=== PATIENT | male | born 1955 | race Hispanic/Latino ===

== ENCOUNTER 2020-08-09 10:14 | Inpatient (IN) | payer OTHER, MEDICARE ==
[~2020-08-09] VITALS: Ht 167.6 cm; Wt 90.7 kg
[2020-08-09] MEDS ORDERED: SODIUM CHLORIDE 0.9% 1000ML 1,000 ML IV SCH (10:30)
[2020-08-09] MEDS ORDERED: DILTIAZEM HCL 5 MG/ML 5 ML VIAL IV ONE (10:30)
[2020-08-09] MEDS ORDERED: DILTIAZEM HCL VIAL 5 ML ONE (10:36)
[2020-08-09] MEDS ORDERED: SODIUM CHLORIDE 0.9% 1000ML 1,000 ML ONE (10:36)
[2020-08-09] MEDS ORDERED: AMLODIPINE BESYL5 MG PO (10:44)
[2020-08-09] MEDS ORDERED: LIPITOR20 MG PO (10:44)
[2020-08-09] MEDS ORDERED: NITROGLYCERIN0.4 MG SL (10:44)
[2020-08-09] MEDS ORDERED: FOLIC ACID-VIT1 EACH PO (10:44)
[2020-08-09] MEDS ORDERED: LEVOTHYROXINE50 MCG PO (10:44)
[2020-08-09] MEDS ORDERED: GABAPENTIN400 MG PO (10:44)
[2020-08-09] MEDS ORDERED: LEVEMIR FL100 UNIT/1 SC (10:44)
[2020-08-09] MEDS ORDERED: DEPAKOTE ER500 MG PO (10:44)
[2020-08-09] MEDS ORDERED: JANUVIA50 MG PO (10:44)
[2020-08-09] MEDS ORDERED: NEURONTIN400 MG PO (10:44)
[2020-08-09] MEDS ORDERED: PROVENTIL HFA6.7 GM INH (10:44)
[2020-08-09] MEDS ORDERED: AMIODARONE HCL 150MG 100 ML IV STA (10:55)
[2020-08-09] MEDS ORDERED: INSULIN REGULAR, HUMAN 100 UNIT/1 ML 3ML VIAL IV ONE (11:00)
[2020-08-09 11:05] LABS: BASOPHILS % 0.2 % (0.0-1.0); HEMATOCRIT 39.9 % (38.2-49.6); HEMOGLOBIN 13.4 g/dL (14.0-18.0); LYMPHOCYTES # (AUTO) 0.6 (1.0-3.2); LYMPHOCYTES % 7.6 % (18.0-39.1); MEAN CORPUSCULAR HEMOGLOBIN 30.9 pg (28-32); MEAN CORPUSCULAR HGB CONC 33.6 g/dL (31-35); MEAN CORPUSCULAR VOLUME 91.9 fL (81-99); MONOCYTES # (AUTO) 0.3 (0.2-0.8); NEUTROPHILS # (AUTO) 7.3 (2.1-6.9); NEUTROPHILS % 87.6 % (38.7-80.0); PLATELET COUNT 189 x10e3/uL (140-360); RED BLOOD COUNT 4.34 x10e6/uL (4.3-5.7); RED CELL DISTRIBUTION WIDTH 12.7 % (11.7-14.4)
[2020-08-09 11:13] LABS: CLARITY,URINE CLEAR (CLEAR); COLOR,URINE YELLOW (YELLOW); KETONES,URINE 1+ (NEGATIVE); LEUKOCYTE ESTERASE ,URINE LARGE (NEGATIVE); NITRITE,URINE NEGATIVE (NEGATIVE); PROTEIN,URINE DIPSTICK >=300 (NEGATIVE); URINE UROBILINOGEN 0.2 mg/dL (0.2 - 1)
[2020-08-09 11:16] LABS: BACTERIA,URINE FEW /HPF
[2020-08-09 11:17] LABS: AMORPHOUS SEDIMENT,URINE MODERATE (FEW)
[2020-08-09] MEDS: CEFEPIME HCL 1GM 1 GM in SODIUM CHLORIDE 0.9% 50ML 50 ML IV SCH ×2 (11:20→11:43)
[2020-08-09 11:23] LABS: ALBUMIN 2.9 g/dL (3.5-5.0); ALBUMIN/GLOBULIN RATIO 0.5 (0.8-2.0); ANION GAP 24.6 mmol/L (8-16); CALCIUM 9.2 mg/dL (8.4-10.2); CREATININE, SERUM 2.63 mg/dL (0.72-1.25); POTASSIUM 4.6 mmol/L (3.5-5.1)
[2020-08-09] MEDS ORDERED: METOPROLOL TARTRATE INJ 1 MG/ML VIAL IV ONE (11:45)
[2020-08-09] MEDS ORDERED: METOPROLOL TARTRATE INJ 1 MG/ML VIAL ONE (11:54)
[2020-08-09 13:17] LABS: FREE THYROXINE INDEX 1.7258 (1.4-3.8); THYROID STIMULATING HORMONE 0.579 uIU/mL (0.350-4.940)
[2020-08-09] MEDS ORDERED: DEXAMETHASONE SOD PHOS 10 MG/1 ML VIAL IV ONE (14:45)
[2020-08-09 20:00] VITALS: BP 131/78
[2020-08-09 20:05] VITALS: BP 131/78
[2020-08-09] MEDS ORDERED: DEXTROSE 50% SYRINGE 50 ML IV PRN ×2 (20:45→22:15)
[2020-08-09] MEDS ORDERED: INSULIN LISPRO 100 UNIT/1 ML 3ML VIAL SQ SCH (21:00)
[2020-08-09] MEDS ORDERED: METOPROLOL TARTRATE 50 MG TAB PO ONE (21:15)
[2020-08-09 21:52] LABS: ABG HCO3 14 mmol/L (22-26); ABG PCO2 24 mmHg (35-45); ABG PH 7.36 (7.35-7.45); ABG PO2 71 mmHg (80-105); ABG TCO2 15
[2020-08-09 22:00] VITALS: BP 138/80
[2020-08-09] MEDS ORDERED: CEFEPIME HCL 1GM 1 GM in SODIUM CHLORIDE 0.9% 50ML 50 ML IV SCH (22:00)
[2020-08-09] MEDS ORDERED: DEXAMETHASONE SOD PHOS INJ 4 MG/ML VIAL IV ONE (22:00)
[2020-08-09] MEDS ORDERED: HYDRALAZINE HCL 20 MG/ML VIAL IV PRN (22:15)
[2020-08-09] MEDS ORDERED: INSULIN REGULAR, HUMAN 3ML VL 100 UNIT in SODIUM CHLORIDE 0.9% 100 ML IV SCH ×2 (22:15)
[2020-08-09] MEDS: SODIUM CHLORIDE 0.9% 1000ML 1,000 ML IV SCH (22:22)
[2020-08-09] MEDS ORDERED: POTASSIUM CHLORIDE 20MEQ/100ML 100 ML IV PRN (22:30)
[2020-08-09] MEDS ORDERED: MAGNESIUM SULF 1GRAM/DEXTROSE 100 ML IV PRN (22:30)
[2020-08-09] MEDS ORDERED: POTASSIUM CHLORIDE 20MEQ/100ML 200 ML IV PRN (22:30)
[2020-08-09] MEDS ORDERED: ENOXAPARIN 30 MG/0.3 ML SYR SC STA (22:51)
[2020-08-09] MEDS ORDERED: CEFTRIAXONE SOD 1 GM/50 ML BAG IV SCH (23:00)
[2020-08-09] MEDS ORDERED: AZITHROMYCIN 500MG/NS 250 ML 250 ML IV SCH (23:00)
[2020-08-10] VITALS (11 sets, daily range): BP systolic 91–138; BP diastolic 52–85
[2020-08-10] MEDS ORDERED: CEFTRIAXONE SOD 1 GM in SODIUM CHLORIDE 0.9% 50ML 50 ML IV SCH ×2
[2020-08-10 00:41] LABS: INR 0.99; PARTIAL THROMBOPLASTIN TIME 30.9 seconds (23.8-35.5); PROTHROMBIN TIME 13.7 seconds (11.9-14.5)
[2020-08-10 00:52] LABS: ANION GAP 23.9 mmol/L (8-16); CALCIUM 8.2 mg/dL (8.4-10.2); CREATININE, SERUM 2.41 mg/dL (0.72-1.25); MAGNESIUM 2.7 MG/DL (1.3-2.1); POTASSIUM 3.9 mmol/L (3.5-5.1)
[2020-08-10 04:57] LABS: BASOPHILS % 0.3 % (0.0-1.0); HEMATOCRIT 38.1 % (38.2-49.6); HEMOGLOBIN 12.9 g/dL (14.0-18.0); LYMPHOCYTES # (AUTO) 0.9 (1.0-3.2); LYMPHOCYTES % 7.9 % (18.0-39.1); MEAN CORPUSCULAR HEMOGLOBIN 30.5 pg (28-32); MEAN CORPUSCULAR HGB CONC 33.9 g/dL (31-35); MEAN CORPUSCULAR VOLUME 90.1 fL (81-99); MONOCYTES # (AUTO) 0.7 (0.2-0.8); MONOCYTES % 6.2 % (4.4-11.3); NEUTROPHILS # (AUTO) 9.4 (2.1-6.9); NEUTROPHILS % 85.1 % (38.7-80.0); PLATELET COUNT 174 x10e3/uL (140-360); RED BLOOD COUNT 4.23 x10e6/uL (4.3-5.7); RED CELL DISTRIBUTION WIDTH 12.9 % (11.7-14.4)
[2020-08-10 05:27] LABS: ALBUMIN 2.3 g/dL (3.5-5.0); ALBUMIN/GLOBULIN RATIO 0.5 (0.8-2.0); ANION GAP 18.4 mmol/L (8-16); CALCIUM 8.3 mg/dL (8.4-10.2); CREATININE, SERUM 2.3 mg/dL (0.72-1.25); POTASSIUM 3.4 mmol/L (3.5-5.1)
[2020-08-10 05:49] LABS: FERRITIN 548.43 ng/mL (21.81-274.66)
[2020-08-10] MEDS: SODIUM CHLORIDE 0.9% 1000ML 1,000 ML IV SCH ×4 (07:30→22:16)
[2020-08-10] MEDS: LEVOTHYROXINE SODIUM 50 MCG TAB PO SCH ×2 (07:30→09:10)
[2020-08-10] MEDS: DEPAKOTE DELAYED-RELEASE TAB 500 MG PO SCH ×3 (08:33→15:10)
[2020-08-10] MEDS: METOPROLOL TARTRATE 50 MG TAB PO SCH ×3 (08:33→21:28)
[2020-08-10] MEDS: CHOLECALCIFEROL 400 UNIT TAB PO SCH ×2 (08:34→09:07)
[2020-08-10] MEDS: GABAPENTIN 100 MG CAP PO SCH ×4 (08:34→21:28)
[2020-08-10] MEDS: ASCORBIC ACID 500 MG TAB PO SCH ×3 (08:34→17:00)
[2020-08-10] MEDS: ZINC SULFATE 220 MG CAP PO SCH ×2 (08:34→09:07)
[2020-08-10] MEDS: DEXAMETHASONE SOD PHOS INJ 4 MG/ML VIAL IV SCH (08:51)
[2020-08-10] MEDS: FAMOTIDINE 20 MG/2 ML VIAL IV SCH (08:51)
[2020-08-10] MEDS ORDERED: ENOXAPARIN 30 MG/0.3 ML SYR SC SCH ×2 (09:00)
[2020-08-10] MEDS ORDERED: GABAPENTIN 400 MG CAP PO SCH (09:00)
[2020-08-10 09:03] LABS: ANION GAP 15.3 mmol/L (8-16); CREATININE, SERUM 2.22 mg/dL (0.72-1.25); MAGNESIUM 2.6 MG/DL (1.3-2.1); POTASSIUM 3.3 mmol/L (3.5-5.1)
[2020-08-10] MEDS: ENOXAPARIN SODIUM INJ 100 MG/ML SYR SC SCH ×2 (09:06→21:28)
[2020-08-10 09:51] LABS: BAND NEUTROPHILS % (MANUAL) 7 %; LYMPHOCYTES % (MANUAL) 3 % (19-48); MONOCYTES % (MANUAL) 3 % (3.4-9.0); NEUTROPHILS % (MANUAL) 86 % (40-74)
[2020-08-10 09:54] LABS: PLATELET ESTIMATE ADEQUATE; PLATELET MORPHOLOGY COMMENT NORMAL; RBC MORPHOLOGY COMMENT NORMAL
[2020-08-10 12:48] LABS: ANION GAP 14.5 mmol/L (8-16); CALCIUM 7.5 mg/dL (8.4-10.2); CREATININE, SERUM 2.18 mg/dL (0.72-1.25); MAGNESIUM 2.6 MG/DL (1.3-2.1); POTASSIUM 3.5 mmol/L (3.5-5.1)
[2020-08-10] MEDS ORDERED: INSULIN REGULAR, HUMAN 3ML VL 100 UNIT in SODIUM CHLORIDE 0.9% 100 ML IV SCH ×2 (14:15)
[2020-08-10] MEDS ORDERED: DEXTROSE 50% SYRINGE 50 ML IV PRN (14:15)
[2020-08-10] MEDS: PIPERACILLIN/TAZOBACTAM 2.25 GM in SODIUM CHLORIDE 0.9% 50ML 50 ML IV SCH ×2 (14:37→21:28)
[2020-08-10 14:49] LABS: FREE T4 (FREE THYROXINE) 0.81 ng/dL (0.8-1.8); THYROID STIMULATING HORMONE 0.247 uIU/mL (0.350-4.940)
[2020-08-10 16:32] LABS: CALCIUM 7.2 mg/dL (8.4-10.2); CREATININE, SERUM 2.02 mg/dL (0.72-1.25); MAGNESIUM 2.5 MG/DL (1.3-2.1)
[2020-08-10] MEDS ORDERED: AMIODARONE HCL 150 MG/100 ML BAG IV PRN (17:45)
[2020-08-10] MEDS ORDERED: AMIODARONE 900MG 500 ML IV PRN (17:45)
[2020-08-10] MEDS ORDERED: VALPROATE SOD INJ 1,000 MG in SODIUM CHLORIDE 0.9% 100 ML 100 ML IV ONE (18:00)
[2020-08-10] MEDS ORDERED: AMIODARONE HCL 100 ML IV PRN (18:00)
[2020-08-10] MEDS: METOPROLOL TARTRATE INJ 1 MG/ML VIAL IV PRN (18:14)
[2020-08-10 18:19] LABS: APPEARANCE,CSF CLEAR (CLEAR); COLOR,CSF COLORLESS (COLORLESS); TUBE NUMBER 3
[2020-08-10 18:20] LABS: WHITE BLOOD CELL,CSF 3 cells/uL (0-5)
[2020-08-10 21:03] LABS: ANION GAP 15.9 mmol/L (8-16); CALCIUM 7.2 mg/dL (8.4-10.2); CREATININE, SERUM 2.03 mg/dL (0.72-1.25); MAGNESIUM 2.5 MG/DL (1.3-2.1); POTASSIUM 3.9 mmol/L (3.5-5.1)
[2020-08-10] MEDS: DIVALPROEX SODIUM 250 MG TAB...DR PO SCH (21:27)
[2020-08-10] MEDS: ATORVASTATIN 20 MG TAB PO SCH (21:27)
[2020-08-10] MEDS ORDERED: SODIUM CHLORIDE 0.9% 500ML 500 ML IV ONE (23:15)
[2020-08-11] VITALS (8 sets, daily range): BP systolic 92–122; BP diastolic 54–83
[2020-08-11] MEDS ORDERED: SODIUM CHLORIDE 0.9% 500ML 500 ML IV SCH (01:30)
[2020-08-11] MEDS ORDERED: SODIUM CHLORIDE 0.9% 250ML 250 ML IV ONE (02:00)
[2020-08-11 02:31] LABS: ABG PCO2 31 mmHg (35-45); ABG PH 7.37 (7.35-7.45); ABG PO2 113 mmHg (80-105)
[2020-08-11 02:32] LABS: ABG HCO3 18 mmol/L (22-26); ABG TCO2 19
[2020-08-11] MEDS ORDERED: MIDODRINE 2.5 MG TAB PO PRN (02:45)
[2020-08-11] MEDS: PIPERACILLIN/TAZOBACTAM 2.25 GM in SODIUM CHLORIDE 0.9% 50ML 50 ML IV SCH ×2 (05:31→14:09)
[2020-08-11 05:50] LABS: BASOPHILS % 0.1 % (0.0-1.0); HEMATOCRIT 32.6 % (38.2-49.6); HEMOGLOBIN 10.9 g/dL (14.0-18.0); LYMPHOCYTES % 12.1 % (18.0-39.1); MEAN CORPUSCULAR HEMOGLOBIN 30.9 pg (28-32); MEAN CORPUSCULAR HGB CONC 33.4 g/dL (31-35); MEAN CORPUSCULAR VOLUME 92.4 fL (81-99); MONOCYTES # (AUTO) 0.3 (0.2-0.8); MONOCYTES % 3.3 % (4.4-11.3); NEUTROPHILS # (AUTO) 6.8 (2.1-6.9); NEUTROPHILS % 83.9 % (38.7-80.0); PLATELET COUNT 148 x10e3/uL (140-360); RED BLOOD COUNT 3.53 x10e6/uL (4.3-5.7); RED CELL DISTRIBUTION WIDTH 13.2 % (11.7-14.4)
[2020-08-11 06:15] LABS: ALBUMIN 1.6 g/dL (3.5-5.0); ALBUMIN/GLOBULIN RATIO 0.4 (0.8-2.0); ANION GAP 14.7 mmol/L (8-16); CREATININE, SERUM 1.76 mg/dL (0.72-1.25); MAGNESIUM 2.4 MG/DL (1.3-2.1); PHOSPHORUS 3.1 MG/DL (2.3-4.7); POTASSIUM 3.7 mmol/L (3.5-5.1)
[2020-08-11] MEDS: METOPROLOL TARTRATE 25 MG TAB PO SCH ×2 (09:00→20:24)
[2020-08-11] MEDS: LEVOTHYROXINE SODIUM 50 MCG TAB PO SCH (10:06)
[2020-08-11] MEDS: DEXAMETHASONE SOD PHOS INJ 4 MG/ML VIAL IV SCH (10:06)
[2020-08-11] MEDS: ZINC SULFATE 220 MG CAP PO SCH (10:07)
[2020-08-11] MEDS: ASCORBIC ACID 500 MG TAB PO SCH ×2 (10:07→17:23)
[2020-08-11] MEDS: CHOLECALCIFEROL 400 UNIT TAB PO SCH (10:07)
[2020-08-11] MEDS: FAMOTIDINE 20 MG/2 ML VIAL IV SCH (10:07)
[2020-08-11] MEDS: ENOXAPARIN SODIUM INJ 100 MG/ML SYR SC SCH (10:07)
[2020-08-11] MEDS: DIVALPROEX SODIUM 250 MG TAB...DR PO SCH ×3 (10:07→20:24)
[2020-08-11] MEDS: GABAPENTIN 100 MG CAP PO SCH ×3 (10:07→20:24)
[2020-08-11] MEDS: SODIUM CHLORIDE 0.9% 1000ML 1,000 ML IV SCH ×2 (10:26→22:19)
[2020-08-11 13:11] LABS: ANION GAP 12.6 mmol/L (8-16); CREATININE, SERUM 1.55 mg/dL (0.72-1.25); MAGNESIUM 2.3 MG/DL (1.3-2.1); POTASSIUM 3.6 mmol/L (3.5-5.1)
[2020-08-11 13:14] LABS: CALCIUM 6.7 mg/dL (8.4-10.2)
[2020-08-11] MEDS ORDERED: SODIUM CHLORIDE 0.9% 500ML 500 ML ONE (18:05)
[2020-08-11] MEDS: ATORVASTATIN 20 MG TAB PO SCH (20:24)
[2020-08-11] MEDS ORDERED: INSULIN GLARGINE 100 UNITS/ML VIAL SQ SCH (21:00)
[2020-08-12] VITALS (11 sets, daily range): BP systolic 96–135; BP diastolic 51–78
[2020-08-12] MEDS: ACETAMINOPHEN 325 MG TAB PO PRN ×3 (03:20→20:49)
[2020-08-12] MEDS: SODIUM CHLORIDE 0.9% 1000ML 1,000 ML IV SCH ×2 (03:30→08:00)
[2020-08-12 05:39] LABS: HEMATOCRIT 29.6 % (38.2-49.6); HEMOGLOBIN 9.8 g/dL (14.0-18.0); LYMPHOCYTES # (AUTO) 0.5 (1.0-3.2); LYMPHOCYTES % 9.3 % (18.0-39.1); MEAN CORPUSCULAR HEMOGLOBIN 30.3 pg (28-32); MEAN CORPUSCULAR HGB CONC 33.1 g/dL (31-35); MEAN CORPUSCULAR VOLUME 91.6 fL (81-99); MONOCYTES # (AUTO) 0.2 (0.2-0.8); MONOCYTES % 3.1 % (4.4-11.3); NEUTROPHILS % 86.6 % (38.7-80.0); PLATELET COUNT 146 x10e3/uL (140-360); RED BLOOD COUNT 3.23 x10e6/uL (4.3-5.7); RED CELL DISTRIBUTION WIDTH 13.1 % (11.7-14.4)
[2020-08-12 06:05] LABS: ALBUMIN 1.6 g/dL (3.5-5.0); ALBUMIN/GLOBULIN RATIO 0.5 (0.8-2.0); ANION GAP 10.5 mmol/L (8-16); CREATININE, SERUM 1.52 mg/dL (0.72-1.25); POTASSIUM 3.5 mmol/L (3.5-5.1)
[2020-08-12 06:07] LABS: CALCIUM 6.7 mg/dL (8.4-10.2)
[2020-08-12] MEDS: LEVOTHYROXINE SODIUM 50 MCG TAB PO SCH (08:00)
[2020-08-12] MEDS: CHOLECALCIFEROL 400 UNIT TAB PO SCH (08:57)
[2020-08-12] MEDS: ZINC SULFATE 220 MG CAP PO SCH (08:57)
[2020-08-12] MEDS: METOPROLOL TARTRATE 25 MG TAB PO SCH ×2 (08:57→21:46)
[2020-08-12] MEDS: FAMOTIDINE 20 MG/2 ML VIAL IV SCH (08:57)
[2020-08-12] MEDS: GABAPENTIN 100 MG CAP PO SCH ×3 (08:57→20:49)
[2020-08-12] MEDS: DIVALPROEX SODIUM 250 MG TAB...DR PO SCH ×3 (08:57→20:49)
[2020-08-12] MEDS: ASCORBIC ACID 500 MG TAB PO SCH ×2 (08:57→16:29)
[2020-08-12] MEDS: CEPHALEXIN MONOHYDRATE 250 MG CAP PO SCH ×3 (11:58→23:55)
[2020-08-12] MEDS ORDERED: POTASSIUM CHLORIDE 20 MEQ TAB CR PO STA (15:05)
[2020-08-12] MEDS ORDERED: INSULIN LISPRO 100 UNIT/1 ML 3ML VIAL SQ SCH (15:45)
[2020-08-12] MEDS: INSULIN LISPRO 100 UNIT/1 ML 3ML VIAL SQ SCH (16:17)
[2020-08-12] MEDS: AMIODARONE HCL 200 MG TAB PO SCH (16:29)
[2020-08-12] MEDS: ATORVASTATIN 20 MG TAB PO SCH (20:49)
[2020-08-12] MEDS ORDERED: INSULIN GLARGINE 100 UNITS/ML VIAL SQ SCH (21:00)
[2020-08-13] VITALS (8 sets, daily range): BP systolic 95–140; BP diastolic 62–83
[2020-08-13] MEDS: METOPROLOL TARTRATE INJ 1 MG/ML VIAL IV PRN (05:04)
[2020-08-13] MEDS: SODIUM CHLORIDE 0.9% 1000ML 1,000 ML IV SCH ×2 (06:05→17:02)
[2020-08-13] MEDS: CEPHALEXIN MONOHYDRATE 250 MG CAP PO SCH ×3 (06:05→18:34)
[2020-08-13] MEDS ORDERED: METOPROLOL TARTRATE 50 MG TAB PO ONE (06:30)
[2020-08-13] MEDS ORDERED: METOPROLOL TARTRATE INJ 1 MG/ML VIAL IV ONE (06:30)
[2020-08-13] MEDS: LEVOTHYROXINE SODIUM 50 MCG TAB PO SCH (07:30)
[2020-08-13] MEDS: INSULIN LISPRO 100 UNIT/1 ML 3ML VIAL SQ SCH ×3 (07:30→16:30)
[2020-08-13] MEDS: FAMOTIDINE 20 MG/2 ML VIAL IV SCH (09:54)
[2020-08-13] MEDS: ZINC SULFATE 220 MG CAP PO SCH (09:54)
[2020-08-13] MEDS: ASCORBIC ACID 500 MG TAB PO SCH ×2 (09:54→17:05)
[2020-08-13] MEDS: CHOLECALCIFEROL 400 UNIT TAB PO SCH (09:54)
[2020-08-13] MEDS: GABAPENTIN 100 MG CAP PO SCH ×3 (09:54→23:06)
[2020-08-13] MEDS: DIVALPROEX SODIUM 250 MG TAB...DR PO SCH ×3 (09:54→21:00)
[2020-08-13] MEDS: AMIODARONE HCL 200 MG TAB PO SCH ×2 (09:54→17:05)
[2020-08-13] MEDS: METOPROLOL TARTRATE 25 MG TAB PO SCH ×2 (09:55→21:00)
[2020-08-13 17:09] LABS: IGG/ALB RATIO CSF 0.17 (0.00-0.25)
[2020-08-13 17:16] LABS: CSF/SERUM ALBUMIN INDEX 9 (0-8)
[2020-08-13] MEDS ORDERED: INSULIN GLARGINE 100 UNITS/ML VIAL SQ SCH (21:00)
[2020-08-13] MEDS: ATORVASTATIN 20 MG TAB PO SCH (23:04)
[2020-08-14] VITALS (7 sets, daily range): BP systolic 96–126; BP diastolic 53–97
[2020-08-14] MEDS: CEPHALEXIN MONOHYDRATE 250 MG CAP PO SCH ×5 (00:52→23:37)
[2020-08-14] MEDS: SODIUM CHLORIDE 0.9% 1000ML 1,000 ML IV SCH ×3 (00:55→19:14)
[2020-08-14] MEDS: LEVOTHYROXINE SODIUM 50 MCG TAB PO SCH (08:05)
[2020-08-14] MEDS: FAMOTIDINE 20 MG/2 ML VIAL IV SCH (08:06)
[2020-08-14] MEDS: AMIODARONE HCL 200 MG TAB PO SCH ×2 (08:06→16:52)
[2020-08-14] MEDS: DIVALPROEX SODIUM 250 MG TAB...DR PO SCH ×3 (08:07→21:05)
[2020-08-14] MEDS: GABAPENTIN 100 MG CAP PO SCH ×3 (08:08→21:09)
[2020-08-14] MEDS: ZINC SULFATE 220 MG CAP PO SCH (08:08)
[2020-08-14] MEDS: CHOLECALCIFEROL 400 UNIT TAB PO SCH (08:08)
[2020-08-14] MEDS: ASCORBIC ACID 500 MG TAB PO SCH ×2 (08:08→16:52)
[2020-08-14] MEDS: METOPROLOL TARTRATE 25 MG TAB PO SCH ×2 (09:00→21:00)
[2020-08-14] MEDS: INSULIN LISPRO 100 UNIT/1 ML 3ML VIAL SQ SCH ×2 (10:39→16:46)
[2020-08-14] MEDS: ACETAMINOPHEN 325 MG TAB PO PRN (19:20)
[2020-08-14] MEDS ORDERED: INSULIN GLARGINE 100 UNITS/ML VIAL SQ SCH (21:00)
[2020-08-14] MEDS: ATORVASTATIN 20 MG TAB PO SCH (21:06)
[2020-08-15] VITALS (8 sets, daily range): BP systolic 98–139; BP diastolic 52–78
[2020-08-15] MEDS: CEPHALEXIN MONOHYDRATE 250 MG CAP PO SCH ×3 (05:05→17:02)
[2020-08-15 05:22] LABS: BASOPHILS % 0.3 % (0.0-1.0); HEMATOCRIT 27.2 % (38.2-49.6); HEMOGLOBIN 9.1 g/dL (14.0-18.0); LYMPHOCYTES # (AUTO) 0.7 (1.0-3.2); LYMPHOCYTES % 9.5 % (18.0-39.1); MEAN CORPUSCULAR HEMOGLOBIN 30.7 pg (28-32); MEAN CORPUSCULAR HGB CONC 33.5 g/dL (31-35); MEAN CORPUSCULAR VOLUME 91.9 fL (81-99); MONOCYTES # (AUTO) 0.6 (0.2-0.8); MONOCYTES % 8.3 % (4.4-11.3); NEUTROPHILS # (AUTO) 5.8 (2.1-6.9); PLATELET COUNT 120 x10e3/uL (140-360); RED BLOOD COUNT 2.96 x10e6/uL (4.3-5.7); RED CELL DISTRIBUTION WIDTH 12.9 % (11.7-14.4)
[2020-08-15 05:42] LABS: ALANINE AMINOTRANSFERASE 17 IU/L (0-55); ALBUMIN 1.4 g/dL (3.5-5.0); ALBUMIN/GLOBULIN RATIO 0.5 (0.8-2.0); ALKALINE PHOSPHATASE 47 IU/L (40-150); ANION GAP 9.4 mmol/L (8-16); BLOOD UREA NITROGEN 12 mg/dL (7-26); BUN/CREATININE RATIO 11 (6-25); CALCIUM 7.1 mg/dL (8.4-10.2); CARBON DIOXIDE 20 mmol/L (22-29); CHLORIDE 108 mmol/L (98-107); CREATININE, SERUM 1.14 mg/dL (0.72-1.25); EST GLOMERULAR FILTRATION RATE > 60 ML/MIN (60-); GLUCOSE 90 mg/dL (74-118); POTASSIUM 3.4 mmol/L (3.5-5.1); SODIUM 134 mmol/L (136-145)
[2020-08-15] MEDS: SODIUM CHLORIDE 0.9% 1000ML 1,000 ML IV SCH ×2 (06:17→21:08)
[2020-08-15] MEDS: INSULIN LISPRO 100 UNIT/1 ML 3ML VIAL SQ SCH ×3 (07:30→16:45)
[2020-08-15] MEDS: DIVALPROEX SODIUM 250 MG TAB...DR PO SCH ×3 (07:44→21:08)
[2020-08-15] MEDS: AMIODARONE HCL 200 MG TAB PO SCH ×2 (07:44→16:46)
[2020-08-15] MEDS: GABAPENTIN 100 MG CAP PO SCH ×3 (07:44→21:08)
[2020-08-15] MEDS: FAMOTIDINE 20 MG/2 ML VIAL IV SCH (07:44)
[2020-08-15] MEDS: CHOLECALCIFEROL 400 UNIT TAB PO SCH (07:45)
[2020-08-15] MEDS: ASCORBIC ACID 500 MG TAB PO SCH ×2 (07:45→16:46)
[2020-08-15] MEDS: ZINC SULFATE 220 MG CAP PO SCH (07:45)
[2020-08-15] MEDS: LEVOTHYROXINE SODIUM 50 MCG TAB PO SCH (07:46)
[2020-08-15] MEDS ORDERED: MIDODRINE HCL 5 MG TABLET PO PRN (08:00)
[2020-08-15] MEDS: METOPROLOL TARTRATE 25 MG TAB PO SCH ×2 (08:02→21:08)
[2020-08-15] MEDS ORDERED: BENZONATATE 100 MG CAP PO PRN (08:45)
[2020-08-15] MEDS: INSULIN GLARGINE 100 UNITS/ML VIAL SQ SCH (20:16)
[2020-08-15] MEDS: ATORVASTATIN 40 MG TAB PO SCH (21:08)
[2020-08-15] MEDS: APIXAB 2.5 MG TABLET PO SCH (21:08)
[2020-08-15] MEDS: ACETAMINOPHEN 325 MG TAB PO PRN (21:09)
[2020-08-16] VITALS (8 sets, daily range): BP systolic 102–139; BP diastolic 68–102
[2020-08-16] MEDS: CEPHALEXIN MONOHYDRATE 250 MG CAP PO SCH ×4 (00:30→17:10)
[2020-08-16] MEDS ORDERED: METOPROLOL TARTRATE INJ 1 MG/ML VIAL IV ONE (06:00)
[2020-08-16] MEDS: SODIUM CHLORIDE 0.9% 1000ML 1,000 ML IV SCH (07:30)
[2020-08-16] MEDS: ASCORBIC ACID 500 MG TAB PO SCH ×2 (08:13→17:10)
[2020-08-16] MEDS: APIXAB 2.5 MG TABLET PO SCH ×2 (08:13→20:54)
[2020-08-16] MEDS: AMIODARONE HCL 200 MG TAB PO SCH ×2 (08:13→17:10)
[2020-08-16] MEDS: DIVALPROEX SODIUM 250 MG TAB...DR PO SCH ×3 (08:13→20:54)
[2020-08-16] MEDS: FAMOTIDINE 20 MG/2 ML VIAL IV SCH (08:13)
[2020-08-16] MEDS: ZINC SULFATE 220 MG CAP PO SCH (08:13)
[2020-08-16] MEDS: GABAPENTIN 100 MG CAP PO SCH ×3 (08:13→20:54)
[2020-08-16] MEDS: LEVOTHYROXINE SODIUM 50 MCG TAB PO SCH (08:13)
[2020-08-16] MEDS: CHOLECALCIFEROL 400 UNIT TAB PO SCH (08:13)
[2020-08-16] MEDS: METOPROLOL TARTRATE 25 MG TAB PO SCH ×2 (08:13→20:54)
[2020-08-16] MEDS: INSULIN LISPRO 100 UNIT/1 ML 3ML VIAL SQ SCH ×3 (08:13→16:30)
[2020-08-16] MEDS: FLUCONAZOLE 100 MG TAB PO SCH (15:18)
[2020-08-16] MEDS: NYSTATIN SUSPENSION 5 ML UDC PO SCH ×2 (15:18→21:07)
[2020-08-16] MEDS: LINEZOLID 600 MG TAB PO SCH ×2 (15:18→20:54)
[2020-08-16] MEDS: ATORVASTATIN 40 MG TAB PO SCH (20:54)
[2020-08-16] MEDS: INSULIN GLARGINE 100 UNITS/ML VIAL SQ SCH (20:55)
[2020-08-16] MEDS: ACETAMINOPHEN 325 MG TAB PO PRN (21:08)
[2020-08-17] VITALS (9 sets, daily range): BP systolic 116–139; BP diastolic 56–103
[2020-08-17] MEDS: CEPHALEXIN MONOHYDRATE 250 MG CAP PO SCH ×4 (00:10→16:45)
[2020-08-17] MEDS: NYSTATIN SUSPENSION 5 ML UDC PO SCH ×3 (05:53→22:30)
[2020-08-17 06:44] LABS: ANION GAP 10.7 mmol/L (8-16); BLOOD UREA NITROGEN 8 mg/dL (7-26); BUN/CREATININE RATIO 8 (6-25); CALCIUM 7.5 mg/dL (8.4-10.2); CARBON DIOXIDE 21 mmol/L (22-29); CHLORIDE 108 mmol/L (98-107); CREATININE, SERUM 1.03 mg/dL (0.72-1.25); EST GLOMERULAR FILTRATION RATE > 60 ML/MIN (60-); GLUCOSE 135 mg/dL (74-118); MAGNESIUM 2.2 MG/DL (1.3-2.1); POTASSIUM 3.7 mmol/L (3.5-5.1); SODIUM 136 mmol/L (136-145)
[2020-08-17] MEDS: INSULIN LISPRO 100 UNIT/1 ML 3ML VIAL SQ SCH ×3 (07:30→16:45)
[2020-08-17] MEDS: FAMOTIDINE 20 MG/2 ML VIAL IV SCH (08:54)
[2020-08-17] MEDS: CHOLECALCIFEROL 400 UNIT TAB PO SCH (08:54)
[2020-08-17] MEDS: AMIODARONE HCL 200 MG TAB PO SCH ×2 (08:54→16:45)
[2020-08-17] MEDS: LEVOTHYROXINE SODIUM 50 MCG TAB PO SCH (08:54)
[2020-08-17] MEDS: FLUCONAZOLE 100 MG TAB PO SCH (08:54)
[2020-08-17] MEDS: GABAPENTIN 100 MG CAP PO SCH ×3 (08:54→21:00)
[2020-08-17] MEDS: DIVALPROEX SODIUM 250 MG TAB...DR PO SCH ×3 (08:54→22:30)
[2020-08-17] MEDS: ASCORBIC ACID 500 MG TAB PO SCH ×2 (08:54→16:45)
[2020-08-17] MEDS: APIXAB 2.5 MG TABLET PO SCH ×2 (08:54→22:30)
[2020-08-17] MEDS: ZINC SULFATE 220 MG CAP PO SCH (08:55)
[2020-08-17] MEDS: LINEZOLID 600 MG TAB PO SCH ×2 (08:55→22:30)
[2020-08-17] MEDS: METOPROLOL TARTRATE 25 MG TAB PO SCH ×2 (10:00→22:30)
[2020-08-17] MEDS ORDERED: POTASSIUM CHLORIDE 20 MEQ TAB CR PO ONE (13:55)
[2020-08-17] MEDS: FUROSEMIDE INJ 10 MG/ML 4 ML VIAL IV SCH ×2 (16:23→22:30)
[2020-08-17] MEDS: INSULIN GLARGINE 100 UNITS/ML VIAL SQ SCH (22:30)
[2020-08-17] MEDS: ATORVASTATIN 40 MG TAB PO SCH (22:30)
[2020-08-18] VITALS (7 sets, daily range): BP systolic 99–141; BP diastolic 48–73
[2020-08-18] MEDS: CEPHALEXIN MONOHYDRATE 250 MG CAP PO SCH ×5 (00:30→23:48)
[2020-08-18] MEDS ORDERED: PANTOPRAZOLE 40 MG 10ML VIAL IV SCH (01:15)
[2020-08-18] MEDS: NYSTATIN SUSPENSION 5 ML UDC PO SCH ×3 (06:00→21:43)
[2020-08-18] MEDS: FUROSEMIDE INJ 10 MG/ML 4 ML VIAL IV SCH (06:20)
[2020-08-18] MEDS: LEVOTHYROXINE SODIUM 50 MCG TAB PO SCH (06:20)
[2020-08-18] MEDS: INSULIN LISPRO 100 UNIT/1 ML 3ML VIAL SQ SCH ×3 (07:30→16:30)
[2020-08-18] MEDS: METOPROLOL TARTRATE 25 MG TAB PO SCH ×2 (08:09→21:42)
[2020-08-18] MEDS: AMIODARONE HCL 200 MG TAB PO SCH ×2 (08:10→18:05)
[2020-08-18 08:31] LABS: ANION GAP 14.3 mmol/L (8-16); BLOOD UREA NITROGEN 10 mg/dL (7-26); BUN/CREATININE RATIO 9 (6-25); CARBON DIOXIDE 18 mmol/L (22-29); CHLORIDE 106 mmol/L (98-107); CREATININE, SERUM 1.15 mg/dL (0.72-1.25); EST GLOMERULAR FILTRATION RATE > 60 ML/MIN (60-); GLUCOSE 85 mg/dL (74-118); MAGNESIUM 1.9 MG/DL (1.3-2.1); POTASSIUM 4.3 mmol/L (3.5-5.1); SODIUM 134 mmol/L (136-145)
[2020-08-18] MEDS: GABAPENTIN 100 MG CAP PO SCH ×3 (08:38→21:42)
[2020-08-18] MEDS: ASCORBIC ACID 500 MG TAB PO SCH ×2 (08:38→18:05)
[2020-08-18] MEDS: APIXAB 2.5 MG TABLET PO SCH ×2 (08:38→21:42)
[2020-08-18] MEDS: FLUCONAZOLE 100 MG TAB PO SCH (08:38)
[2020-08-18] MEDS: FAMOTIDINE 20 MG/2 ML VIAL IV SCH (08:38)
[2020-08-18] MEDS: DIVALPROEX SODIUM 250 MG TAB...DR PO SCH ×3 (08:38→21:42)
[2020-08-18] MEDS: ZINC SULFATE 220 MG CAP PO SCH (08:39)
[2020-08-18] MEDS: CHOLECALCIFEROL 400 UNIT TAB PO SCH (08:39)
[2020-08-18] MEDS: LINEZOLID 600 MG TAB PO SCH ×2 (08:39→21:42)
[2020-08-18] MEDS: PANTOPRAZOLE 40 MG 10ML VIAL IV SCH (12:17)
[2020-08-18] MEDS: ATORVASTATIN 40 MG TAB PO SCH (21:42)
[2020-08-18] MEDS: INSULIN GLARGINE 100 UNITS/ML VIAL SQ SCH (21:42)
[2020-08-19] VITALS (9 sets, daily range): BP systolic 108–139; BP diastolic 60–99
[2020-08-19] MEDS: PANTOPRAZOLE 40 MG 10ML VIAL IV SCH ×2 (00:56→13:06)
[2020-08-19] MEDS: NYSTATIN SUSPENSION 5 ML UDC PO SCH ×3 (05:11→22:00)
[2020-08-19] MEDS: CEPHALEXIN MONOHYDRATE 250 MG CAP PO SCH (05:11)
[2020-08-19] MEDS: INSULIN LISPRO 100 UNIT/1 ML 3ML VIAL SQ SCH ×3 (07:30→18:12)
[2020-08-19] MEDS: LEVOTHYROXINE SODIUM 50 MCG TAB PO SCH (07:54)
[2020-08-19] MEDS: ZINC SULFATE 220 MG CAP PO SCH (08:07)
[2020-08-19] MEDS: AMIODARONE HCL 200 MG TAB PO SCH ×2 (08:07→18:02)
[2020-08-19] MEDS: DIVALPROEX SODIUM 250 MG TAB...DR PO SCH ×3 (08:07→22:00)
[2020-08-19] MEDS: ASCORBIC ACID 500 MG TAB PO SCH ×2 (08:07→18:03)
[2020-08-19] MEDS: METOPROLOL TARTRATE 25 MG TAB PO SCH ×2 (08:07→22:00)
[2020-08-19] MEDS: FAMOTIDINE 20 MG/2 ML VIAL IV SCH (08:07)
[2020-08-19] MEDS: CHOLECALCIFEROL 400 UNIT TAB PO SCH (08:07)
[2020-08-19] MEDS: GABAPENTIN 100 MG CAP PO SCH ×3 (08:07→22:00)
[2020-08-19] MEDS: APIXAB 2.5 MG TABLET PO SCH ×2 (08:07→22:00)
[2020-08-19] MEDS: FLUCONAZOLE 100 MG TAB PO SCH (08:07)
[2020-08-19] MEDS: LINEZOLID 600 MG TAB PO SCH ×2 (08:08→22:00)
[2020-08-19 11:11] LABS: % IRON SATURATION 19 % (15-50); IRON 33 ug/dL (65-175); TOTAL IRON BINDING CAPACITY 174 ug/dL (261-478); TRANSFERRIN 124 mg/dL (174-364)
[2020-08-19] MEDS: ACETAMINOPHEN 325 MG TAB PO PRN (18:44)
[2020-08-19] MEDS: INSULIN GLARGINE 100 UNITS/ML VIAL SQ SCH (21:00)
[2020-08-19] MEDS: ATORVASTATIN 40 MG TAB PO SCH (22:00)
[2020-08-20] VITALS: BP 138/67
[2020-08-20] MEDS: PANTOPRAZOLE 40 MG 10ML VIAL IV SCH ×2 (01:05→14:04)
[2020-08-20 04:00] VITALS: BP 123/63
[2020-08-20] MEDS: NYSTATIN SUSPENSION 5 ML UDC PO SCH ×2 (05:52→14:04)
[2020-08-20 05:58] LABS: AMYLASE 104 U/L (25-125); LIPASE 31 U/L (8-78)
[2020-08-20] MEDS: LEVOTHYROXINE SODIUM 50 MCG TAB PO SCH (07:30)
[2020-08-20] MEDS: INSULIN LISPRO 100 UNIT/1 ML 3ML VIAL SQ SCH ×3 (07:30→16:30)
[2020-08-20 08:00] VITALS: BP 127/58
[2020-08-20 08:55] VITALS: BP 127/58
[2020-08-20] MEDS ORDERED: IRON SUCROSE 100 MG in SODIUM CHLORIDE 0.9% 100 ML 100 ML IV SCH (09:00)
[2020-08-20] MEDS: FAMOTIDINE 20 MG/2 ML VIAL IV SCH (09:00)
[2020-08-20] MEDS: DIVALPROEX SODIUM 250 MG TAB...DR PO SCH ×2 (10:23→17:58)
[2020-08-20] MEDS: AMIODARONE HCL 200 MG TAB PO SCH ×2 (10:23→17:58)
[2020-08-20] MEDS: APIXAB 2.5 MG TABLET PO SCH (10:23)
[2020-08-20] MEDS: METOPROLOL TARTRATE 25 MG TAB PO SCH (10:24)
[2020-08-20] MEDS: LINEZOLID 600 MG TAB PO SCH (10:24)
[2020-08-20] MEDS: ASCORBIC ACID 500 MG TAB PO SCH ×2 (10:24→17:58)
[2020-08-20] MEDS: CHOLECALCIFEROL 400 UNIT TAB PO SCH (10:24)
[2020-08-20] MEDS: ZINC SULFATE 220 MG CAP PO SCH (10:24)
[2020-08-20 12:30] VITALS: BP 139/73
[2020-08-20 16:30] VITALS: BP 141/72
[2020-08-21] MEDS ORDERED: PANTOPRAZOLE SOD 40 MG TABEC PO SCH (07:30)
[2020-08-21] MEDS ORDERED: FAMOTIDINE 20 MG TAB PO SCH (09:00)
== END 2020-08-20 21:12 | DRG 177 ==
LOC: ER 10:37 → IMCU 14:50 → ER 18:47 → MED/SURG3 08-13 13:32
PROVIDERS: ADMIT Internal Medicine; ATTEND Internal Medicine
PROC: 009U3ZX Drainage of Spinal Canal, Percutaneous Approach, Diagnostic (ICD-10-PCS; principal; 2020-08-10)
PROC: B01B1ZZ Fluoroscopy of Spinal Cord using Low Osmolar Contrast (ICD-10-PCS; 2020-08-10)
DX: U07.1 COVID-19 (principal); E11.10 Type 2 diabetes mellitus with ketoacidosis without coma; J12.82 Pneumonia due to coronavirus disease 2019; J96.01 Acute respiratory failure with hypoxia; G92 Toxic encephalopathy; J69.0 Pneumonitis due to inhalation of food and vomit; J96.02 Acute respiratory failure with hypercapnia; N17.9 Acute kidney failure, unspecified; K52.1 Toxic gastroenteritis and colitis; E87.1 Hypo-osmolality and hyponatremia; N39.0 Urinary tract infection, site not specified; S37.39XA Other injury of urethra, initial encounter; B37.49 Other urogenital candidiasis; B37.0 Candidal stomatitis; Z16.22 Resistance to vancomycin related antibiotics; E03.9 Hypothyroidism, unspecified; G40.909 Epilepsy, unspecified, not intractable, without status epilepticus; E78.5 Hyperlipidemia, unspecified; E88.09 Other disorders of plasma-protein metabolism, not elsewhere classified; N43.3 Hydrocele, unspecified; Z86.73 Personal history of transient ischemic attack (TIA), and cerebral infarction without residual deficits; N18.9 Chronic kidney disease, unspecified; E11.22 Type 2 diabetes mellitus with diabetic chronic kidney disease; I12.9 Hypertensive chronic kidney disease with stage 1 through stage 4 chronic kidney disease, or unspecified chronic kidney disease; I48.0 Paroxysmal atrial fibrillation; F03.90 Unspecified dementia, unspecified severity, without behavioral disturbance, psychotic disturbance, mood disturbance, and anxiety; T36.95XA Adverse effect of unspecified systemic antibiotic, initial encounter; Y92.230 Patient room in hospital as the place of occurrence of the external cause; R31.0 Gross hematuria; E83.41 Hypermagnesemia; E66.9 Obesity, unspecified; D64.9 Anemia, unspecified; B96.4 Proteus (mirabilis) (morganii) as the cause of diseases classified elsewhere; R13.10 Dysphagia, unspecified; R53.81 Other malaise; E66.8 Other obesity; Z68.32 Body mass index [BMI] 32.0-32.9, adult
CPT/HCPCS: 36415; 36600; 51700; 62328; 70450; 70551; 71045; 72194; 74176; 74230; 74470; 76705; 76870; 80048; 80053; 80164; 81001; 82040; 82140; 82150; 82607; 82728; 82746; 82784; 82805; 82945; 82948; 83036; 83540; 83605; 83615; 83690; 83735; 83880; 83916; 84100; 84157; 84436; 84439; 84443; 84466; 84479; 84484; 85025; 85045; 85379; 85610; 85730; 86140; 86592; 86789; 87040; 87070; 87086; 87186; 87205; 87476; 87529; 89051; 93005; 93306; 93976; 95819; 96361; 96372; 97139; 99251; 99285; J0456; J0692; J0696; J1100; J1650; J1756; J1815; J1817; J1940; J2543; J3480; J7030; J7040; J7050; U0002